=== PATIENT | female | born 1975 | race American Indian/Alaskan Native ===

== ENCOUNTER 2017-01-15 08:30 | Outpatient (CLI) | payer OTHER ==
--- NOTE | 2017-01-15 09:09 | Mammography Report ---
Bilateral mammogram: Compared to 11/19/15 and 12/12/15. CAD study utilized. Findings: Predominance adipose tissue bilaterally. No mass or microcalcification. Normal axilla. New Focal asymmetry upper inner left breast. Impression: Focal asymmetry left breast. Recommend spot magnification and if necessary sonographic examination. BI-RADS CATEGORY: 0 = Needs additional imaging evaluation ACR BI-RADS MAMMOGRAPHIC CODES: 0 = Needs additional imaging evaluation; 1 = Negative; 2 = Benign; 3 = Probably benign; 4 = Suspicious; 5 = Malignant; 6 = Known biopsy-proven malignancy COMMENT: 1. Dense breast tissue, i.e., adenosis, fibrocystic changes, etc., may obscure an underlying neoplasm. 2. Approximately 10% of cancers are not detected with mammography. 3. A negative mammography report should not delay biopsy if a clinically suspicious mass is present. COMMENT: Patient follow-up letters are generated in [employer].
== END 2017-01-15 08:31 | disposition home or self-care (01) ==
LOC: SPVWC 08:30
PROVIDERS: ATTEND Obstetrics & Gynecology
DX: Z12.31 Encounter for screening mammogram for malignant neoplasm of breast (principal)
CPT/HCPCS: 77067; G0202

== ENCOUNTER 2017-05-25 06:06 | Observation (INO) | payer OTHER ==
[2017-05-24 10:53] LABS: Basophils % (Auto) 1.2 % (0.0-1.8); Hematocrit 34.6 % (30.3-42.9); Hemoglobin 11.3 gm/dl (10.1-14.3); Mean Corpuscular HGB Conc 33 % (30-34); Mean Corpuscular Hemoglobin 26 pg (28-32); Mean Corpuscular Volume 78 fl (79-97); Platelet Count 297 K/mm3 (140-440); Red Blood Count 4.44 M/mm3 (3.65-5.03); Red Cell Distribution Width 16.9 % (13.2-15.2); White Blood Count 9.2 K/mm3 (4.5-11.0)
--- NOTE | 2017-05-24 10:55 | Anesthesia Consultation ---
Anesthesia Consult and Med Hx Date of service: 05/25/17 - Airway Anesthetic Teeth Evaluation: Good, Crowns (top right molar) ROM Head & Neck: Adequate Mental/Hyoid Distance: Adequate Mallampati Class: Class II Intubation Access Assessment: Probably Good - Pulmonary Exam CTA: Yes - Cardiac Exam Cardiac Exam: RRR - Pre-Operative Health Status ASA Pre-Surgery Classification: ASA2 Proposed Anesthetic Plan: General - Pulmonary Hx Smoking: No Hx Asthma: Yes (no attack in years) - Cardiovascular System Hx Hypertension: No - Central Nervous System Hx Seizures: No CVA: No Hx Psychiatric Problems: No - Endocrine Hx Insulin Dependent Diabetes: No Hx Hyperthyroidism: No - Hematic Hx Anemia: Yes - Other Systems Hx Cancer: No Hx Obesity: Yes - Additional Comments Anesthesia Medical History Comments: DOES NOT WANT TAP BLOCK
--- NOTE | 2017-05-24 19:21 | History and Physical Report ---
History of Present Illness Date of examination: 05/13/17 Chief complaint: Menorrhagia and dysmenorrhea History of present illness: Past History : 5 Term Births: 3 Living Children: 3 Para: 3 Prev : 1 Spont. Ab: 2 # 1 Delivery type: Comments: svdx2,c/sx1 # 2 Delivery type: # 3 Delivery type: # 4 Delivery type: SAB # 5 Delivery type: SAB [employer] History Operations: Tonsillectomy Abnormal PAP: positive Infection History Hx of STD: None Active Medications (reviewed today): IBUPROFEN 800 MG ORAL TABLET (IBUPROFEN) 1 tab po q 8hr prn HYDROCODONE-ACETAMINOPHEN 5-325 MG ORAL TABLET (HYDROCODONE-ACETAMINOPHEN) 1-2 po q 6 hrs for pain ALBUTEROL SULFATE NEBULIZATION SOLUTION (ALBUTEROL SULFATE NEBU) Current Allergies (reviewed today): IODINE (Critical) PERCOCET (Critical) * SHELL FISH (Critical) Past Medical History: Reviewed history from 11/04/2015 and no changes required: Asthma Past Surgical History: Reviewed history from 06/14/2008 and no changes required: Tonsillectomy Social History: Reviewed history from 01/11/2017 and no changes required: Patient is Smoking History: Patient has never smoked. Risk Factors: Alcohol use: yes Drinks per day: social Mammogram History: Date of Last Mammogram: 01/27/2017 PAP Smear History: Date of Last PAP Smear: 01/11/2017 Previous Tobacco Use: Signed On 02/08/2017 Smoked Tobacco Use: Never smoker Passive smoke exposure: no Drug use: no Previous Alcohol Use: Signed On - 02/08/2017 Alcohol use: no Exercise: yes Times per week: 2 Seatbelt use: 100 % Mammogram History: Date of Last Mammogram: 01/27/2017 PAP Smear History: Date of Last PAP Smear: 01/11/2017 Review of Systems General Denies fever, chills, sweats, anorexia, fatigue, weakness, malaise, weight loss and sleep disorder. Complains of menorrhagia and painful periods. Denies vaginal discharge, incontinence, dysuria, hematuria, urinary frequency, amenorrhea, abnormal vaginal bleeding, pelvic pain, genital sores, decreased libido, painful sex, urinary urgency, hot flashes, vaginal dryness, vaginal itching and vaginal odor. CV Denies chest pains, palpitations, syncope, dyspnea on exertion, orthopnea, PND and peripheral edema. Resp Denies cough, dyspnea at rest, excessive sputum, hemoptysis, wheezing and pleurisy. GI Denies nausea, vomiting, diarrhea, constipation, change in bowel habits, abdominal pain, melena, hematochezia, jaundice, gas/bloating, indigestion/ heartburn, dysphagia and odynophagia. Endo Denies cold intolerance, heat intolerance, polydipsia, polyphagia, polyuria and unusual weight change. Breast Denies left breast lump, right breast lump, nipple discharge, bloody discharge from nipple, breast pain, abnormal mammogram and breast enlargement. MS Denies back pain, joint pain, joint swelling, muscle cramps, muscle weakness, stiffness, arthritis, sciatica, restless legs, leg pain at night and leg pain with exertion. Derm Denies rash, itching, dryness and suspicious lesions. Neuro Denies paralysis, paresthesias, headache, seizures, tremors, vertigo, transient blindness, frequent falls, frequent headaches and difficulty walking. Psych Denies depression, anxiety, irritability and mood swings. Eyes Denies blurring, diplopia, irritation, discharge, vision loss, eye pain and photophobia. ENT Denies earache, ear discharge, tinnitus, decreased hearing, nasal congestion, nosebleeds, sore throat and hoarseness. Allergy Denies urticaria, allergic rash, hay fever and recurrent infections. Heme Denies abnormal bruising, bleeding and enlarged lymph nodes. PHYSICAL EXAM Skin no ulcers, xanthomas Chest: respiratory effort normal, clear to auscultation CV: regular, normal S1-S2, no murmur, no rub, no gallop Abdomen: soft, non-tender, no masses, Musculoskeletal: grossly normal ROM in joints, no joint tenderness or muscle weakness Neuro: grossly normal DTRs, sensation, strength, cranial nerves Extremities: normal alignment, no joint enlargement, crepitus, masses or tenderness; normal tone and strength [employer] Exams Vulva/Vagina: normal appearance, no discharge, lesions. No evidence of cystocele or rectocele. Cervix: normal appearance, no lesions, no discharge Uterus: normal position, midline, mobile Adnexae: no masses or tenderness Impression & Recommendations: Problem # 1: MENORRHAGIA (ICD-626.2) ([id number]-I01.0) Diagnosis explained to patient . Questions answered. Discussed with patient various medical and surgical therapies common for treatment: Hormonal/medical therapy,endometrial ablation or hysterectomy. She desires to proceed with hysterectomy and other indicated procedures Her updated medication list for this problem includes: Ibuprofen 800 Mg Oral Tablet (Ibuprofen) ..... 1 tab po q 8hr prn Consent reviewed and signed . Possible laparoscopy or laparotomy explained to patient. The risks and alternatives for this surgery were reviewed with the patient. She was informed of possible bleeding, infection, injury to bowel, bladder, ureters or other adjacent organs. She desires ovarian conservation. She was informed she may require surgery later to have her ovaries removed for a benign or malignant condition. She was informed she will not be able to get after her uterus has been removed. The patient was instructed/informed the following: The normal length of hospital stay for this procedure. Nothing to eat or drink after midnight the evening prior to surgery. Clear liquids the day before surgery. Fleets enema the day prior to surgery. Pre-op instruction sheets given. Wound care instructions given. Infection precautions reviewed, patient to call for any signs or symptoms of infection. The usual discomforts associated with this procedure were detailed. Proper use of pain medicines was reviewed. Patient was given ample opportunity to have all her questions answered before signing informed consent. Patient voiced understanding and agrees with plan of care Problem # 2: Dysmenorrhea (ICD-625.3) (YCE26-D12.6) It was extensively explained to her that her pain may persist, recur or change in nature due to the difficulty with diagnosis chronic pelvic pain or development of adhesions. She declined other treatment options at this time Her updated medication list for this problem includes: Ibuprofen 800 Mg Oral Tablet (Ibuprofen) ..... 1 tab po q 8hr prn Counseling and coordination of care was >50% of the face to face time. The total face to face time for this visit was 40 minutes. Patient states she can take Lortab. Medications Added to Medication List This Visit: 1) Ibuprofen 800 Mg Oral Tablet (Ibuprofen) .... 1 tab po q 8hr prn 2) Hydrocodone-acetaminophen 5-325 Mg Oral Tablet (Hydrocodone-acetaminophen) .... 1-2 po q 6 hrs for pain Prescriptions: IBUPROFEN 800 MG ORAL TABLET (IBUPROFEN) 1 tab po q 8hr prn #30 x 1 Entered and Authorized by: Yanni Patel MD Method used: Print then Give to Patient RxID: [id number] HYDROCODONE-ACETAMINOPHEN 5-325 MG ORAL TABLET (HYDROCODONE-ACETAMINOPHEN) 1-2 po q 6 hrs for pain #20 x 0 Entered and Authorized by: Yanni Patel MD Method used: Print then Give to Patient RxID: [id number] Medications and Allergies Allergies Allergy/AdvReac Type Severity Reaction Status Date / Time acetaminophen [From Percocet] Allergy Rash Verified 05/21/17 16:36 iodine Allergy Anaphylaxis Verified 05/21/17 16:36 oxycodone [From Percocet] Allergy Rash Verified 05/21/17 16:36 shellfish derived Allergy Anaphylaxis Verified 05/21/17 16:36 Home Medications Medication Instructions Recorded Confirmed Last Taken Type Norethindrone AC-Eth Estradiol 1 each PO DAILY 05/21/17 05/21/17 Unknown History [Loestrin 21 1-20 Tablet] Active Meds: Active Medications Celecoxib (Celebrex) 200 mg PO PREOP NR Stop: 05/25/17 21:00 Famotidine (Pepcid) 20 mg PO PREOP NR Stop: 05/25/17 21:00 Gabapentin (Neurontin) 300 mg PO PREOP NR Stop: 05/25/17 21:00 Sodium Chloride (Nacl 0.9% 1000 Ml) 1,000 mls @ 75 mls/hr IV DIRECT BRADLEY Cefazolin Sodium (Ancef/Sterile Water 2 Gm/20 Ml) 2 gm in 20 mls @ 80 mls/hr IV PREOP NR PRN Reason: Protocol Midazolam HCl (Versed) 2 mg IV PREOP NR Stop: 05/25/17 23:59 Exam Vital Signs Temp Pulse Resp BP 98.9 F 80 16 120/84 05/24/17 10:30 05/24/17 10:30 05/24/17 10:30 05/24/17 10:30 Results - Labs 05/24/17 10:40 Abnormal lab results 05/24/17 Range/Units 10:40 MCV 78 L (79-97) fl MCH 26 L (28-32) pg RDW 16.9 H (13.2-15.2) % Assessment and Plan - Patient Problems (1) Menorrhagia Status: Acute Qualifiers: Menorrahagia type: M (2) Dysmenorrhea Status: Acute
[~2017-05-25 06:06] MED LIST: ANCEF/STERILE WATER 2 GM/20 ML 2 GM/20 ML SYRINGE IV NR; NACL 0.9% 1000 ML 1,000 ML IV SCH; NEURONTIN PO NR; PEPCID PO NR; VERSED IV NR
[2017-05-25] MEDS ORDERED: NACL BACTERIOSTATIC INFILTRATI ONE (06:37)
[2017-05-25] MEDS ORDERED: MARCAINE 0.5% 30 ML INFILTRATI ONE (07:37)
[2017-05-25] MEDS ORDERED: NEOSPORIN GU IR ONE ×2 (07:37→10:08)
[2017-05-25] MEDS ORDERED: DILAUDID ONE ×2 (07:39→11:25)
[2017-05-25] MEDS ORDERED: DIPRIVAN 10 MG/ML IV ONE (07:39)
[2017-05-25] MEDS ORDERED: ZEMURON IV ONE (07:39)
[2017-05-25] MEDS ORDERED: XYLOCAINE MPF 2% ONE (07:40)
[2017-05-25] MEDS ORDERED: DILAUDID IV PRN ×2 (07:41→11:21)
--- NOTE | 2017-05-25 07:42 | Anesthesia Day of Surgery ---
Anesthesia Day of Surgery - Day of Surgery Patient Examined: Yes Patient H&P Reviewed: Yes Patient is NPO: Yes
[2017-05-25] MEDS ORDERED: CALCIUM CHLORIDE IV ONE (08:43)
[2017-05-25] MEDS ORDERED: THROMBIN (BOVINE) TP ONE (08:43)
[2017-05-25] MEDS ORDERED: ROBINUL ONE (09:13)
[2017-05-25] MEDS ORDERED: NEOSTIGMINE ONE (09:13)
[2017-05-25] MEDS ORDERED: ZOFRAN ONE (09:13)
[2017-05-25] MEDS ORDERED: DECADRON ONE (09:13)
[2017-05-25] MEDS ORDERED: ePHEDrine SULFATE ONE (09:44)
[2017-05-25] MEDS ORDERED: NACL 0.9% 1000 ML 1,000 ML ONE (10:05)
[2017-05-25] MEDS ORDERED: WATER FOR IRRIG STERILE IR ONE (10:07)
[2017-05-25] MEDS ORDERED: NACL 0.9% IR ONE (10:08)
[2017-05-25] MEDS ORDERED: MARCAINE 0.5% INFILTRATI ONE (10:08)
--- NOTE | 2017-05-25 11:01 | Post Operative Note ---
Pre-op diagnosis: menorrhagia dysmenorrhea Post-op diagnosis: same (endometriosis) Findings: Grossly normal uterus, tubes, and ovaries. Points of endometriosis were noted on the right superior pelvic sidewall on the left cul-de-sac and the right pelvic sidewall under the ovary. As adhesions and scarring of the bladder to the lower uterine segment and cervix. Procedure: 1. Robot assisted total hysterectomy 2. Bilateral salpingectomy 3. Fulguration and excision of endometriosis Anesthesia: BAN Surgeon: CHAPARRO ROBERTS Estimated blood loss: 50-100ml Pathology: list (uterus with cervix attached, bilateral fallopian tubes, anterior pelvic salt wall with implant of endometriosis) Specimen disposition: to lab Condition: stable Disposition: PACU
--- NOTE | 2017-05-25 11:19 | Operative Report ---
Operative Report Operative Report: Date: 05/25/2017 Preoperative diagnosis: 1. Menorrhagia 2. Dysmenorrhea Postoperative diagnosis: 1. Menorrhagia 2. Severe dysmenorrhea 3. Endometriosis Procedure: 1. Robotic-assisted total laparoscopic hysterectomy 2. Bilateral salpingectomy 3. Excision and fulguration of endometriosis implants Surgeon: Yanni Patel MD Utilization Review Specialist: Radha Fallon, certified alcohol counselor Anesthesiologist: Jaz Aranda M.D. Anesthesia: Gen. endotracheal anesthesia EBL: Approximately 50 mL Findings: Exam under anesthesia was unremarkable. Grossly normal uterus tubes and ovaries. Dense adhesions of the bladder to the anterior lower uterine segment and cervix. Implants of endometriosis on the superior pelvic sidewall, left posterior cul-de-sac, and right inferior pelvic sidewall under the right ovary. Procedure: Patient was taken to the OR and placed in the supine position. General anesthesia was induced and an oral gastric tube was placed. Her neck and head were placed on foam support. Foam eye protection with goggles were secured in place. Then foam face protection was placed and secured. Foam shoulder pads were then positioned on her shoulders for Trendelenburg positioning. She was then placed in dorsolithotomy position. Exam under anesthesia was unremarkable. The abdomen and vagina were then prepped and draped in the usual sterile fashion. Timeout was performed. A Solorzano catheter was inserted into the bladder with drainage of clear yellow urine. The operative speculum was introduced into the vagina and the anterior lip of the cervix was grasped with single-toothed tenaculum. The uterus was sounded to 11 cm. The cervix was progressively dilated to allow the large V care uterine manipulator. The bulb of the manipulator was inflated and the speculum and tenaculum were removed. The cup of the manipulator was placed around the cervix and the blue occluder of the manipulator was properly positioned in the vagina. A laparotomy sponge that was saturated with a solution of polymyxin and saline was placed in the vagina to ensure pneumoperitoneum. Sterile gloves were placed and attention was turned to the abdomen. A 10 mm vertical supraumbilical incision was made approximately 10 cm superior to the elevated fundus of the uterus. A 12 mm trocar with the laparoscope and camera attached was introduced through this incision under direct visualization. The abdomen was insufflated. No obvious bowel, bladder, ureteral, or major vascular injury was noted. The patient was then placed in steep Trendelenburg position and the following trochars were placed under direct visualization: 8 mm robotic trochars were placed through incisions made in the bilateral midclavicular lower abdominal region approximately 10 cm lateral and approximately 2 cm below the midline incision, and a 5 mm trocar was placed through an incision made in the right lower lateral pelvis approximately 2 cm superior to the iliac crest. The 10 mm laparoscope was then replaced by a 5 mm laparoscope that was placed through the 5 millimeter lateral trocar. The 12 mm trocar was then removed in the Brent Lozada fascial closure device was placed through the incision and a 0 Vicryl was placed through the fascia. Once the suture was secured the 12 mm trocar was reintroduced. Once the trochars were in the appropriate positions, the the da Lindsay robot system was engaged. The EndoShears and bipolar device was placed through the 8 mm trochars and positioned then attention was turned to the console. The uterus was elevated and bilateral salpingectomy was performed. Each tube was removed through the 5 mm trocar and sent to pathology in separate containers. Then the utero-ovarian ligaments were clamped. cauterized and incised bilaterally using 30 W of energy. Then the round ligaments were clamped , cauterized and incised bilaterally. The anterior leaf of the broad ligament was elevated and careful blunt and sharp dissection the bladder flap was created and dissected away from the lower uterine segment and cervix. The posterior leaf of the broad ligament was dissected away from the uterine vessels. The cup of the uterine manipulator was palpated both anteriorly and posteriorly. Course of the ureters was visualized and was confirmed to be away from the operative field. The uterine vessels were then clamped and cauterized bilaterally. Blanching of the uterus was then noted. Attention was again turned to the anterior lower uterine segment and the bladder was confirmed to be away from the operative field. Then attention was turned again to the posterior where the cup of the manipulator was palpated and a colpotomy was performed down to the cup. The incision was extended in the lateral position the uterine vessels that were again clamped and cauterized and incised. Continuing along the cup of the manipulator in a circumferential manner the colpotomy was completed. The uterus and cervix were then removed through the vaginal incision. The pelvis was irrigated with warm normal saline. A moist laparotomy sponge was placed in the vagina to maintain pneumoperitoneum. The vagina cuff was reapproximated using V LOC 180 suture in a simple running stitch. Then a J stitch was performed to secure the suture. Again the pelvis was copiously irrigated with warm polymixin with normal saline. The laparotomy sponge was removed from the vagina. No bowel, bladder, ureteral or major vascular injury was noted. The superior implant of endometriosis was then excised and placed in formalin to be sent to pathology. The implants of endometriosis in the posterior left cul-de-sac and inferior pelvic sidewall were then fulgurated superficially. The ureters were visualized and noted to be peristaltic and away from the operative field. Once hemostasis was noted, platelet rich plasma was applied to the operative field to ensure hemostasis. Then platelet poor plasma was applied to the operative field to decrease formation of adhesions. Again hemostasis was noted. Grossly normal appendix was noted. Then the instruments were removed, the robot was disengaged. The 12 mm trocar was removed and the fascia was ligated with the 0 Vicryl suture that was placed at the beginning of the procedure. The patient was taken out of Trendelenburg position, the remaining trochars were removed. Incisions were reapproximated using 4-0 Vicryl in a subcuticular manner. Incisions were infused with half percent Marcaine without epinephrine and Surgiseal was placed over the incisions. The vagina was then inspected, no bleeding was noted and clear yellow urine was draining into the Solorzano bag at the end of the procedure. Patient was taken to recovery room in stable condition.
--- NOTE | 2017-05-25 12:25 | Post Anesthesia Evaluation ---
- Post Anesthesia Evaluation Patient Participated: Yes Airway Patent: Yes Stable Respiratory Function: Yes Nausea/Vomiting: No Temp > 96.8F: Yes Pain Manageable: Yes Adequeate Hydration: Yes Anesthesia Complications: No Block Receding Appropriately: Not Applicable Patient on Ventilator: No
[2017-05-25] MEDS ORDERED: LACTATED RINGERS 1,000 ML IV SCH (12:43)
[2017-05-25] MEDS ORDERED: NARCAN 0.4 MG/1 ML IV PRN (12:43)
[2017-05-25] MEDS ORDERED: ZOFRAN IV PRN (12:43)
[2017-05-25] MEDS ORDERED: MORPHINE IV PRN (12:43)
[2017-05-25] MEDS ORDERED: ZOFRAN PO PRN (12:43)
[2017-05-25] MEDS ORDERED: REGLAN IV PRN (12:43)
[2017-05-25] MEDS ORDERED: REGLAN PO PRN (12:43)
[2017-05-25] MEDS: TYLENOL PO SCH ×2 (14:04→20:55)
[2017-05-25] MEDS: ULTRAM PO SCH ×2 (17:04→22:23)
[2017-05-25] MEDS: ANCEF/NS 1 GM/50 ML 1 GM/50 ML BAG IV SCH (17:05)
[2017-05-25] MEDS: MORPHINE IV PRN (19:53)
[2017-05-25] MEDS ORDERED: ANCEF/NS 1 GM/50 ML 1 GM/50 ML BAG IV SCH (20:00)
--- NOTE | 2017-05-25 20:49 | Progress Note ---
Assessment and Plan Operative findings and procedures explained to patient and her . Questions encouraged and answered. Plan of care explained, she voiced understanding and agrees with plan of care. - Patient Problems (1) History of robot-assisted laparoscopic hysterectomy Current Visit: Yes Status: Acute (2) Status post bilateral salpingectomy Current Visit: Yes Status: Acute (3) Endometriosis Current Visit: Yes Status: Acute (4) Dysmenorrhea Current Visit: Yes Status: Acute Subjective - Subjective Date of service: 05/25/17 Principal diagnosis: DOS RATH, (B) s'pingectomy, endometriosis Interval history: Resting in bed present Patient reports: appetite normal Objective - Vital Signs Latest vital signs: Vital Signs Temp Pulse Resp BP Pulse Ox 05/25/17 16:13 97.5 F L 64 18 111/64 100 05/25/17 12:36 16 114/70 05/25/17 12:30 100 05/25/17 12:20 97.7 F 76 100 05/25/17 11:50 97.5 F L 64 14 115/67 100 05/25/17 11:30 64 16 108/65 100 05/25/17 11:00 59 L 18 104/62 100 05/25/17 10:45 60 19 104/61 100 05/25/17 10:30 60 20 104/62 100 05/25/17 10:25 59 L 14 107/64 100 05/25/17 10:20 55 L 19 108/58 100 05/25/17 10:16 97.2 F L 58 L 22 101/58 100 05/25/17 07:07 98.0 F 81 16 110/57 97 05/25/17 06:20 98.0 F 81 16 110/57 97 Intake and Output 05/25/17 05/25/17 05/25/17 06:59 14:59 22:59 Intake Total 850 500 Output Total 290 Balance 560 500 Intake: IV 850 Oral 500 Output: Urine 290 Other: Total, Intake Amount 500 Voiding Method Indwelling Catheter - Exam Breasts: Present: deferred Cardiovascular: Present: Regular rate Lungs: Present: Clear to auscultation, Normal air movement Abdomen: Present: normal appearance, soft, normal bowel sounds. Absent: distention Extremities: Present: normal Incision: Present: normal, dry, intact
[2017-05-25] MEDS: PEPCID IV SCH (21:00)
[2017-05-26] MEDS: ANCEF/NS 1 GM/50 ML 1 GM/50 ML BAG IV SCH
[2017-05-26] MEDS: MORPHINE IV PRN ×2 (00:14→08:10)
[2017-05-26] MEDS: TYLENOL PO SCH ×2 (02:00→03:43)
[2017-05-26] MEDS: ULTRAM PO SCH (05:00)
[2017-05-26 06:44] LABS: Hematocrit 30.8 % (30.3-42.9); Hemoglobin 10.2 gm/dl (10.1-14.3); Mean Corpuscular HGB Conc 33 % (30-34); Mean Corpuscular Hemoglobin 26 pg (28-32); Mean Corpuscular Volume 79 fl (79-97); Platelet Count 284 K/mm3 (140-440); Red Blood Count 3.92 M/mm3 (3.65-5.03); Red Cell Distribution Width 17.2 % (13.2-15.2); White Blood Count 12.6 K/mm3 (4.5-11.0)
--- NOTE | 2017-05-26 08:38 | Discharge Summary ---
Providers - Providers Date of Admission: 05/25/17 10:36 Date of discharge: 05/26/17 Attending physician: CHAPARRO ROBERTS Primary care physician: MICHELLE AYALA Hospitalization Condition: Good Disposition: DC-01 TO HOME OR SELFCARE - Discharge Diagnoses (1) History of robot-assisted laparoscopic hysterectomy Status: Acute (2) Status post bilateral salpingectomy Status: Acute (3) Endometriosis Status: Chronic (4) Dysmenorrhea Status: Chronic Core Measure Documentation - Palliative Care Palliative Care/ Comfort Measures: Not Applicable - Core Measures Any of the following diagnoses?: none Exam - Constitutional Vitals: Temp Pulse Resp BP Pulse Ox 97.5 F L 77 18 99/61 98 05/26/17 07:59 05/26/17 07:59 05/26/17 07:59 05/26/17 07:59 05/26/17 07:59 General appearance: Present: no acute distress - Neck Neck: Present: supple - Respiratory Respiratory effort: normal Respiratory: negative: CTA - Cardiovascular Rhythm: regular - Extremities Extremities: no ischemia, No edema - Abdominal General gastrointestinal: Present: soft, non-tender, non-distended, normal bowel sounds Female genitourinary: Present: deferred - Rectal Rectal Exam: deferred - Integumentary Integumentary: Present: clear, warm, dry (trocar incisions c/d/i, no s/s infection) - Musculoskeletal Musculoskeletal: strength equal bilaterally - Psychiatric Psychiatric: appropriate mood/affect Plan Activity: other (No sex, no driving, ambulate on your property ~1mile a day. Use incentive spirometer q1h while awake. ) Weight Bearing Status: Weight Bear as Tolerated Diet: regular (Avoid spicy, high salt, acidic and fatty foods. Eat small meals frequently in a day. Drink 100oz water a day, void frequently) Wound: open to air, keep clean and dry Special Instructions: no heavy lifting (No lifting greater than 15lbs) Additional Instructions: Patient given prescriptions at the office at preop visit Follow up with: CHAPARRO ROBERTS MD [Staff Physician] - (as scheduled)
[2017-05-26] MEDS: PEPCID IV SCH (09:57)
[2017-05-26] MEDS ORDERED: TYLENOL PO SCH (10:00)
[2017-05-26 16:01] VITALS: BP 106/56
== END 2017-05-26 13:05 | disposition home or self-care (01) ==
LOC: OR 06:06 → OB 10:36
PROVIDERS: ADMIT Obstetrics & Gynecology; ATTEND Obstetrics & Gynecology
DX: N92.0 Excessive and frequent menstruation with regular cycle (principal); N94.6 Dysmenorrhea, unspecified; N80.9 Endometriosis, unspecified; E66.9 Obesity, unspecified; J45.909 Unspecified asthma, uncomplicated
CPT/HCPCS: 36415; 58571; 58662; 81025; 85025; 85027; 86850; 86900; 86901; 88305; 88307; 88342; 96365; 96375; 96376; A4217; G0378; J0690; J1100; J1170; J2250; J2270; J2405; J2704; J2710; J7030; J7120; S2900; 88302

== ENCOUNTER 2019-03-21 15:33 | Outpatient (CLI) | payer OTHER ==
--- NOTE | 2019-03-22 10:22 | Mammography Report ---
BILATERAL DIGITAL SCREENING MAMMOGRAM WITH CAD INDICATION: Screening. COMPARISONS: 01/15/2017 and 11/19/2015 FINDINGS: Craniocaudal and mediolateral oblique views of both breasts were obtained using 2-D digital acquisition. In addition to standard review, the examination was analyzed for possible abnormalities using a computer-assisted detection device (iCAD). There are scattered areas of fibroglandular density. A left asymmetry with architectural distortion on the MLO view requires additional imaging. No suspic ious calcifications. The right breast is negative. IMPRESSION: Left asymmetry requiring additional imaging. Recommend recall for spot compression MLO and rolled cc views and left breast ultrasound if needed. BI-RADS CATEGORY 0: INCOMPLETE - NEED ADDITIONAL IMAGING EVALUATION AND/OR PRIOR MAMMOGRAMS FOR COMP ARISON Information is entered into a reminder system for a target due date for the next mammogram. The resul ts and recommendations were sent to the patient by mail. Signer Name: Thanh Ward MD Signed: 03/22/2019 10:18 AM Workstation Name: [id number]
== END 2019-03-21 15:34 | disposition home or self-care (01) ==
LOC: SPVWC 15:33
PROVIDERS: ATTEND Obstetrics & Gynecology
DX: Z12.31 Encounter for screening mammogram for malignant neoplasm of breast (principal); E66.9 Obesity, unspecified; J45.909 Unspecified asthma, uncomplicated; Z90.89 Acquired absence of other organs
CPT/HCPCS: 77067